=== PATIENT | female | born 1950 | race Caucasian/White ===

== ENCOUNTER 2022-06-12 10:05 | Outpatient (CLI) | payer MEDICARE, OTHER | END 2022-06-12 10:06 | disposition home or self-care (01) | LOC: CSHMAMMO 10:05 | PROVIDERS: ATTEND Family Medicine | DX: Z12.31 Encounter for screening mammogram for malignant neoplasm of breast (principal); N64.89 Other specified disorders of breast | CPT/HCPCS: 77063; 77067 ==

== ENCOUNTER 2022-06-26 12:40 | Outpatient (CLI) | payer MEDICARE, OTHER | END 2022-06-26 12:41 | disposition home or self-care (01) | LOC: CSHMAMMO 12:40 | PROVIDERS: ATTEND Family Medicine | DX: N64.89 Other specified disorders of breast (principal) | CPT/HCPCS: 76642; 77065; G0279 ==

== ENCOUNTER 2023-08-09 12:13 | Outpatient (CLI) | payer MEDICARE | END 2023-08-09 12:14 | disposition home or self-care (01) | LOC: CSHMAMMO 12:13 | PROVIDERS: ATTEND Family Medicine | DX: Z12.31 Encounter for screening mammogram for malignant neoplasm of breast (principal) | CPT/HCPCS: 77063; 77067 ==

== ENCOUNTER 2024-08-11 09:54 | Outpatient (CLI) | payer MEDICARE, OTHER | END 2024-08-11 09:55 | disposition home or self-care (01) | LOC: CSHMAMMO 09:54 | PROVIDERS: ATTEND Family Medicine | DX: Z12.31 Encounter for screening mammogram for malignant neoplasm of breast (principal) | CPT/HCPCS: 77063; 77067 ==

== ENCOUNTER 2025-08-31 08:56 | Outpatient (CLI) | payer MEDICARE, OTHER | END 2025-08-31 08:57 | disposition home or self-care (01) | LOC: CSHMAMMO 08:56 | PROVIDERS: ATTEND Family Medicine | DX: Z12.31 Encounter for screening mammogram for malignant neoplasm of breast (principal) | CPT/HCPCS: 77063; 77067 ==